=== PATIENT | female | born 1995 | race Caucasian/White ===

== ENCOUNTER 2017-04-17 05:18 | Day surgery (SDC) | payer OTHER ==
[2017-04-11 09:19] LABS: ABSOLUTE EOSINOPHILS # (AUTO) 0.1 10^3/uL (0.0-0.6); ABSOLUTE MONOCYTES (AUTO) 0.6 10^3/uL (0.1-1.4); ABSOLUTE NEUT (AUTO) 2.5 10^3/uL (1.7-8.2); BASOPHILS % (AUTO) 0.6 % (0-2); HEMATOCRIT 39.1 % (36.0-47.0); HEMOGLOBIN 13.4 g/dL (12.0-15.5); HGB HCT DIFFERENCE 1.1; LYMPHOCYTES % (AUTO) 38.3 % (13-45); MEAN CORPUSCULAR HEMOGLOBIN 31.1 pg (27.0-33.4); MEAN CORPUSCULAR HGB CONC 34.4 g/dL (32.0-36.0); MEAN CORPUSCULAR VOLUME 91 fl (80-97); RED BLOOD COUNT 4.32 10^6/uL (3.72-5.28); SEGMENTED NEUTROPHILS % (AUTO) 49.1 % (42-78); WHITE BLOOD COUNT 5.2 10^3/uL (4.0-10.5)
[2017-04-11 09:45] LABS: ANION GAP 9 (5-19); BLOOD UREA NITROGEN 10 mg/dL (7-20); CALCIUM 9.5 mg/dL (8.4-10.2); CARBON DIOXIDE 29 mmol/L (22-30); CHLORIDE 104 mmol/L (98-107); GLUCOSE 60 mg/dL (75-110); POTASSIUM 4.1 mmol/L (3.6-5.0); SODIUM 141.8 mmol/L (137-145)
[2017-04-11 09:56] LABS: APPEARANCE,URINE SLIGHTLY-CLOUDY; BILIRUBIN,URINE NEGATIVE (NEGATIVE); GLUCOSE, URINE NEGATIVE (NEGATIVE); KETONES,URINE NEGATIVE (NEGATIVE); LEUKOCYTE ESTERASE,URINE NEGATIVE (NEGATIVE); NITRITE,URINE NEGATIVE (NEGATIVE); PROTEIN,URINE NEGATIVE (NEGATIVE); URINE SPECIFIC GRAVITY 1.003; UROBILINOGEN,URINE NEGATIVE mg/dL (<2.0)
--- NOTE | 2017-04-11 10:24 | RADIOLOGY REPORT (SQ) ---
EXAM DESCRIPTION: CHEST PA/LATERAL COMPLETED DATE/TIME: 04/11/2017 10:09 am REASON FOR STUDY: PRE OP COMPARISON: None. EXAM PARAMETERS: NUMBER OF VIEWS: two views TECHNIQUE: Digital Frontal and Lateral radiographic views of the chest acquired. RADIATION DOSE: NA LIMITATIONS: none FINDINGS: LUNGS AND PLEURA: No opacities, masses or pneumothorax. No pleural effusion. MEDIASTINUM AND HILAR STRUCTURES: No masses or contour abnormalities. HEART AND VASCULAR STRUCTURES: Heart normal size. No evidence for failure. BONES: No acute findings. HARDWARE: None in the chest. OTHER: No other significant finding. IMPRESSION: NO SIGNIFICANT RADIOGRAPHIC FINDING IN THE CHEST. TECHNICAL DOCUMENTATION: JOB ID: [id number] [employer]- All Rights Reserved
--- NOTE | 2017-04-11 23:56 | EKG REPORT ---
SEVERITY:- BORDERLINE ECG - SINUS RHYTHM BORDERLINE T ABNORMALITIES, INFERIOR LEADS : Confirmed by: Celia Zarco 11-Apr-2017 23:55:40
[~2017-04-17 05:18] MED LIST: CEFAZOLIN 2 GM/D5W RTU 2 GM/50 ML RTUPB IV PRN; LACTATED RINGERS 1000 ML IV PRN; LIDOCAINE 0.5% INJ-PF (5 MG/ML) 50 ML SDV SUBCUT PRN
[2017-04-17] MEDS ORDERED: BUPIVACAINE HCL 0.5 % INJ/PF 30 ML SDV ONE (05:59)
[2017-04-17] MEDS ORDERED: EPINEPHRINE INJ/PF 1 MG/1 ML AMPULE ONE (05:59)
[2017-04-17] MEDS ORDERED: ALBUTEROL SULFATE 0.083% NEB 2.5 MG/3 ML AMPUL NEB ONE (06:33)
[2017-04-17] MEDS ORDERED: SCOPOLAMINE HYDROBROMIDE 1.5 MG PATCH.TD72 ONE (06:34)
[2017-04-17] MEDS ORDERED: FENTANYL CITRATE INJ/PF 100 MCG/2 ML AMPUL ONE (06:44)
[2017-04-17] MEDS ORDERED: FENTANYL CITRATE INJ/PF 250 MCG/5 ML AMPULE ONE (06:44)
[2017-04-17] MEDS ORDERED: ACETAMINOPHEN 100 ML IV ONE (06:45)
[2017-04-17] MEDS ORDERED: PROPOFOL INJ 200 MG/20 ML VIAL IV ONE (06:45)
[2017-04-17] MEDS ORDERED: FAMOTIDINE INJ/PF 20 MG/2 ML SDV IV ONE (06:45)
[2017-04-17] MEDS ORDERED: MORPHINE SULFATE 10 MG/ML INJ ONE (06:45)
[2017-04-17] MEDS ORDERED: MIDAZOLAM 2 MG/2 ML INJ ONE (06:57)
[2017-04-17] MEDS ORDERED: SCOPOLAMINE HYDROBROMIDE 1.5 MG PATCH.TD72 TD ONE (07:00)
[2017-04-17] MEDS ORDERED: CLINDAMYCIN 600 MG/D5W RTU 600 MG/50 ML RTUPB IV ONE (07:50)
[2017-04-17] MEDS ORDERED: FENTANYL CITRATE INJ/PF 100 MCG/2 ML AMPUL IV PRN ×3 (08:34)
[2017-04-17] MEDS ORDERED: DIPHENHYDRAMINE HCL 50 MG/ML VIAL IV PRN (08:34)
[2017-04-17] MEDS ORDERED: PROMETHAZINE HCL INJ 25 MG/1 ML VIAL IV PRN (08:34)
[2017-04-17] MEDS ORDERED: MORPHINE SULFATE 10 MG/ML INJ IV PRN (08:34)
[2017-04-17] MEDS: FENTANYL CITRATE INJ/PF 100 MCG/2 ML AMPUL ONE ×2 (10:16→10:36)
[2017-04-17] MEDS ORDERED: ONDANSETRON HCL INJ/PF 4 MG/2 ML SDV IV PRN (10:29)
[2017-04-17] MEDS ORDERED: OXYCODONE-ACETAMINOPHEN 5-325 MG TABLET PO PRN ×2 (10:29)
--- NOTE | 2017-04-17 10:29 | PDOC DISCHARGE SUMMARY ---
Discharge Summary (SDC) - Discharge Final Diagnosis: Right hip arthroscopy with labral debridement, femoroplasty, fractional lengthening iliopsoas tendon Date of Surgery: 04/17/17 Discharge Date: 04/17/17 Condition: Good Treatment or Instructions: Patient instructed to follow up in 10-14 days. Patient instructed to keep dressing dry clean and intact for 4 days and then allowed to remove. At that point patient can shower and apply Band-Aids as needed. Patient can do range of motion as tolerated. Avoid external rotation of the operative hip. Nonweightbearing with crutches 4 weeks Patient instructed to call the office if patient develops fevers chills redness and drainage from the surgical sites. Prescriptions: Ondansetron HCl [Zofran 4 mg Tablet] 1 - 2 tab PO Q8HP PRN #20 tablet PRN Reason: Oxycodone HCl/Acetaminophen [Percocet 5-325 mg Tablet] 1 - 2 tab PO ASDIR PRN # 40 tablet PRN Reason: Referrals: MIGUEL DUNLAP PA [Primary Care Provider] - Discharge Diet: As Tolerated Respiratory Treatments at Home: Deep Breathing/Coughing Discharge Activity: No Driving, Keep Legs Elevated, No Lifting/Push/Pulling Adaptive Devices on Discharge: Axillary Crutches Report the Following to Your Physician Immediately: Shortness of Breath, Vomiting, Increase in Pain, Fever over 101 Degrees, Unusual Bleeding, Redness, Swelling, Warmth, Increased Soreness, Drainage-Yellow, Drainage-Chavez, Drainage- Green, Drainage-Foul Smelling
--- NOTE | 2017-04-17 10:32 | RADIOLOGY REPORT (SQ) ---
EXAM DESCRIPTION: HIP IN OPERATING RM COMPLETED DATE/TIME: 04/17/2017 10:20 am REASON FOR STUDY: R HIP ARTHROSCOPY M24.151 OTHER ARTICULAR CARTILAGE DISORDERS, RIGHT HIP M25.851 OTHER SPECIFIED JOINT DISORDERS, RIGHT HIP COMPARISON: None. NUMBER OF VIEWS: Two view(s). TECHNIQUE: Digital radiographic images of the right hip post-procedure. LIMITATIONS: None. FINDINGS: 2 images were obtained from fluoro from a right hip arthroscopic procedure. IMPRESSION: SATISFACTORY POSTOPERATIVE right HIP. TECHNICAL DOCUMENTATION: JOB ID: [id number] [employer]- All Rights Reserved
--- NOTE | 2017-04-17 10:36 | Operative Report ---
Operative Report DATE OF SURGERY: 04/17/17 PREOPERATIVE DIAGNOSIS: Right hip small labral tear, internal snapping hip syndrome, femoral acetabular impingement POSTOPERATIVE DIAGNOSIS: Same OPERATION: Right hip arthroscopy with labral debridement, femoroplasty, fractional lengthening of the iliopsoas tendon SURGEON: TORI SOFIA ANESTHESIA: GA TISSUE REMOVED OR ALTERED: none COMPLICATIONS: none ESTIMATED BLOOD LOSS: 10mL INTRAOPERATIVE FINDINGS: as above PROCEDURE: Patient was brought to the operating room. The patient was induced and intubated in supine position. IV antibiotics were given prior to entering the OR. Boots were placed on both lower extremities. Peroneal post was applied and the patient was brought down to the perineal post. Both extremities were securing and the hip distraction system. At this point traction was placed in both lower extremities. C-arm was used to guide us and allow us to dislocate the right hip successfully. Once sedated gross traction and then gentle traction and confirm a dislocation under C-arm I started the time her the right lower extremity was taken off of gross traction. This point the right hip was prepped and draped in a normal sterile surgical fashion. Timeout was done identifying the left hip as the correct site. With the use of C-arm I placed a spinal needle and the anticipated anterolateral portal site. Once I felt that I piercing the capsule, I inflated the capsule with air using a 60 mL sterile syringe, this was showing proper placement intra-articularly. I this point I placed a nitinol wire and removed the spinal needle. I proceeded to dilate appropriately after using a scalpel to do a incision establish a my portal site. Camera then was introduced and under direct visualization proceeded to use a spinal needle to status my anterior portal site. I marked the ASIS and the midline in the midportion of the thigh to make sure that we were on the lateral aspect of the spine to avoid any neurovascular structures. Once I pursue Sloughing directly visualize a spinal needle and proceeded to use the same technique of placing nitinol wire, removed the needle and then proceeded to dilate the capsule after establishing the portal site with a scalpel. At this point I proceeded to do my arthrotomy using a retractable Saxman blade. I proceeded to use switching sticks to changed my camera to the anterior portal and allowing to do complete my arthrotomy from the anterolateral portal using the retractable Saxman blade. At this point once the arthrotomy was completed I proceeded to do my diagnostic arthroscopy. Patient had a small labral chondral junction tear. She had erythema superiorly within the labrum. This was adjacent to the iliopsoas tendon which I proceeded to do fractional lengthening using the radiofrequency ablator and Saxman blade. I also used the 4.0 mm curved shaver and radiofrequency ablator to debride the labral chondral junction tear. The remaining labrum was intact. The articular cartilage of the acetabulum and femoral head was intact. Also satisfied with the lengthening the tendon and the debridement of the labrum and then remove the traction and let and fall back into the socket. In the peripheral compartment I was able to visualize the small cam lesion. I used a bur to do my resection and C-arm for guidance. I flexed the hip to make sure there was no impingement in the area of resection. At this point and I used the closing device and through some FiberWire through the capsule and repaired the capsule partially anteriorly. Total sutures were passed and tied and arthroscopically the tails were cut with the arthroscopic cutter. Pictures were taken showing the capsule closure. At this point the fluid was removed from the hip and the instruments as well. The leg was placed in extension and the 2 portal sites were closed with 3-0 nylon. Xeroform 4 x 4 dressing followed by abdominal pad was applied and the dressing was held with Medipore tape. Patient was successfully extubated and transferred to PACU in a stable condition.
[2017-04-17 13:37] VITALS: BP 125/87
[2017-04-17] MEDS ORDERED: ONDANSETRON HCL INJ/PF 4 MG/2 ML SDV ONE (15:19)
[2017-04-17] MEDS ORDERED: LIDOCAINE 2% INJ-PF (20 MG/ML) 10 ML AMPUL ONE (15:19)
[2017-04-17] MEDS ORDERED: SUCCINYLCHOLINE CHLORIDE INJ 200 MG/10 ML VIAL ONE (15:19)
[2017-04-17] MEDS ORDERED: GLYCOPYRROLATE INJ 0.4 MG/2 ML VIAL ONE (15:19)
[2017-04-17] MEDS ORDERED: DEXAMETHASONE SOD PHOSPHATE INJ 4 MG/1 ML VIAL ONE (15:19)
== END 2017-04-17 12:15 | disposition home or self-care (01) ==
LOC: OROUT 05:18
PROVIDERS: ATTEND Orthopaedic Surgery
PROC: 0L8J4ZZ Division of Right Hip Tendon, Percutaneous Endoscopic Approach (ICD-10-PCS; 2017-04-17)
PROC: 0SQ94ZZ Repair Right Hip Joint, Percutaneous Endoscopic Approach (ICD-10-PCS; 2017-04-17)
PROC: 0SQC4ZZ Repair Right Knee Joint, Percutaneous Endoscopic Approach (ICD-10-PCS; principal; 2017-04-17 07:30)
DX: M24.151 Other articular cartilage disorders, right hip (principal); M25.851 Other specified joint disorders, right hip; F17.210 Nicotine dependence, cigarettes, uncomplicated; Z88.0 Allergy status to penicillin; Z79.1 Long term (current) use of non-steroidal anti-inflammatories (NSAID)
CPT/HCPCS: 93005; 36415; 82962; 85025; 81025; 80048; 81001; 71020; 73501; 93010; 94640; 29914; 27299; 29916; J2250; J1100; J0171; J3010 ×2; J0330; J2405; J2704; J3490; J0690; J0131; 01202; J2270